=== PATIENT | male | born 1945 | race Caucasian/White ===

== ENCOUNTER → 2020-02-04 | Day surgery (SDC) | payer MEDICARE, OTHER ==
[2020-01-28 14:58] LABS: BASOPHILS % (AUTO) 0.3 % (0-1); EOSINOPHILS # (AUTO) 0.2 X10'3 (0-0.9); EOSINOPHILS % (AUTO) 3.7 % (0-6); LYMPHOCYTES # (AUTO) 0.6 X10'3 (1.1-4.8); MEAN CORPUSCULAR HEMOGLOBIN 30.3 PG (27.0-31.0); MEAN CORPUSCULAR HGB CONC 33.1 g/dL (33.0-36.5); MEAN CORPUSCULAR VOLUME 91.7 FL (78-98); MONOCYTES # (AUTO) 0.2 X10'3 (0-0.9); MONOCYTES % (AUTO) 3.7 % (2-12); NEUTROPHILS % (AUTO) 82.3 % (42-75); PRE OP PLATELET COUNT 183 X10'3 (140-440); RED BLOOD COUNT 3.38 X10'6 (4.70-6.10); RED CELL DISTRIBUTION WIDTH 15.9 % (11.5-14.5)
[2020-01-28 15:04] LABS: ALBUMIN 3.4 G/DL (3.4-5.0); ALBUMIN/GLOBULIN RATIO 0.9 (1.1-1.5); ALKALINE PHOSPHATASE 102 IU/L (46-116); BLOOD UREA NITROGEN 19 MG/DL (7-18); BUN/CREATININE RATIO 15.2 (5.4-32.0); CALCIUM 8.4 MG/DL (8.5-10.1); CHLORIDE 105 MMOL/L (99-107); CREATININE 1.25 MG/DL (0.60-1.10); PRE OP ALT 20 U/L (30-65); PRE OP ANION GAP 6 (8-16); PRE OP AST 14 U/L (10-37); PRE OP BILIRUB, TOTAL 0.3 MG/DL (0.0-1.0); PRE OP POTASSIUM 4.2 MMOL/L (3.4-5.1); PRE OP SODIUM 143 MMOL/L (135-145); TOTAL CARBON DIOXIDE 31.9 MMOL/L (24-32); TOTAL PROTEIN 7.2 G/DL (6.4-8.2); eGFR 56 ML/MIN
[2020-01-28 15:05] LABS: PRE OP GLUCOSE 102 MG/DL (70-104)
[2020-01-28 15:14] LABS: PRE OP HEMOGLOBIN 10.3 g/dL (14.0-17.9)
[2020-02-04] VITALS (7 sets, daily range): BP systolic 122–150; BP diastolic 52–78
[~2020-02-04] VITALS: Ht 188 cm; Wt 99.3 kg
[~2020-02-04] MED LIST: 0.9 % SODIUM CHLORIDE 10 ML VIAL ONE; BUPIVAcaine/PF 2.5 mg/ml (0.25%) 30ml vial ONE; FOLI0.4T2 PO; HYDR-4353 PO; LIDOcaine 1% (10mg/ml) 2ml vial ONE; LIDOcaine 2% (20mg/ml) 5ml vial ONE; MELO-100 PO; METF-900 PO; METH2.5T PO; PANT40TA4 PO; ROPIVAcaine 0.5% (5mg/ml) 30ml vial ONE; SERT50TA PO; acetaminophen 1,000mg/100ml IV 100 ML IV PRN; ceFAZolin 2gm in dextrose, iso 50 ML IV ONE; cloNIDine hcl/PF 100mcg/ml inj ONE; dexamethasone sod phosphate 4mg/ml inj. ONE; ePHEDrine 50MG/ML INJ. ONE; famotidine 20mg tablet PO ONE; fentaNYL/PF 50MCG/1 ML 2ML syringe IV PRN; fentaNYL/PF 50MCG/1 ML 2ML syringe ONE; meperidine/PF 25mg/ml syringe IV PRN; midazolam 2 mg/2 ml injection ONE; morphine 2 MG/ML inj. syringe IV PRN; morphine 4 MG/ML inj SYRINge IV PRN; ondansetron/PF 4mg/2ml inj IV PRN; ondansetron/PF 4mg/2ml inj ONE; proCHLORperazine 10 MG/2 ml inj IV PRN; propofol inj 20 ML IV ONE; ringers solution, lacted 1,000 ML IV SCH; sevoflurane 250ml liquid IH ONE
--- NOTE | 2020-02-04 06:50 | NUR ---
PT HAS OPEN SORE FROM DOG SCRATCH ON RIGHT ARM. ALSO HAS BRUISES SAME RIGHT ARM FROM TRIPPING AND FALLING. DR PRAKASH AWARE.
--- NOTE | 2020-02-04 09:35 | NUR ---
Received from OR via [facility] , accompanied by Anesthesiologist CONNIE and report given by Anesthesiolgist. PATIENT WITH 20G PIV IN RIGHT UE RUNNING LR AT 100. DENIES PAIN AT THIS TIME. LEFT AND RIGHT WRIST DRESSINGS WITH BIAS DRESSING PRESENT - ALL CDI. 10L MASK ON WITH 98% SATURATIONS. Addendum: 02/04/20 at 0961 by Dutch Howard RN, RN Amended: Links added.
--- NOTE | 2020-02-04 10:35 | NUR ---
I HAVE REVIEWED D/C INSTRUCTIONS WITH PATIENT AND FAMILY AND THEY HAVE VERBALIZED UNDERSTANDING. PATIENT D/C HOME WITH ALL BELONGINGS AND FAMILY GAVE TRANSPORT HOME.ICE TO [facility]. IS DEMONSTRATED BY PATIENT AND AGREES TO USE AT HOME. 96% SATS UPON DC. OUT VIA WHEELCHAIR TO PERSONAL; VEHICLE WHERE HE WAS TAKEN HOME. Addendum: 02/04/20 at 1045 by Dutch Howard RN, RN Amended: Links added.
== END | disposition home or self-care (01) ==
LOC: PAS 05:38
PROVIDERS: ATTEND Orthopaedic Surgery Hand Surgery
DX: M19.032 Primary osteoarthritis, left wrist (principal); D21.11 Benign neoplasm of connective and other soft tissue of right upper limb, including shoulder; M05.721 Rheumatoid arthritis with rheumatoid factor of right elbow without organ or systems involvement; M19.031 Primary osteoarthritis, right wrist; I48.91 Unspecified atrial fibrillation; E78.5 Hyperlipidemia, unspecified; F32.9 Major depressive disorder, single episode, unspecified; G47.33 Obstructive sleep apnea (adult) (pediatric); E11.9 Type 2 diabetes mellitus without complications; G89.18 Other acute postprocedural pain; Z87.891 Personal history of nicotine dependence; Z72.89 Other problems related to lifestyle; Z85.47 Personal history of malignant neoplasm of testis; Z79.899 Other long term (current) drug therapy; Z88.5 Allergy status to narcotic agent; Z98.890 Other specified postprocedural states; Z11.59 Encounter for screening for other viral diseases; Z83.6 Family history of other diseases of the respiratory system; Z80.9 Family history of malignant neoplasm, unspecified
CPT/HCPCS: 25800; 26111; 36415; 64417; 71046; 80053; 82948; 85025; 93005; A6402; C1713; C9359; J0735; J1100; J2001; J2250; J2405; J2704; J3010; J3490; J7120; U0003; A4215; A4618; A6449; A7000; J2795

== ENCOUNTER 2024-03-26 08:11 | Day surgery (SDC) | payer OTHER ==
[2024-03-21 15:47] LABS: BASOPHILS % (AUTO) 0.8 % (0-1); EOSINOPHILS # (AUTO) 0.1 X10'3 (0-0.9); EOSINOPHILS % (AUTO) 2.2 % (0-6); LYMPHOCYTES # (AUTO) 0.7 X10'3 (1.1-4.8); LYMPHOCYTES % (AUTO) 13.6 % (21-51); MEAN CORPUSCULAR HEMOGLOBIN 32.5 PG (27.0-31.0); MEAN CORPUSCULAR HGB CONC 33.4 g/dL (33.0-36.5); MEAN CORPUSCULAR VOLUME 97.3 FL (78-98); MEAN PLATELET VOLUME 7.1 FL (7.4-10.4); MONOCYTES # (AUTO) 0.3 X10'3 (0-0.9); MONOCYTES % (AUTO) 6.8 % (2-12); NEUTROPHILS # (AUTO) 3.9 X10'3 (1.8-7.7); NEUTROPHILS % (AUTO) 76.6 % (42-75); PRE OP HEMATOCRIT 33.7 % (42.0-52.0); PRE OP HEMOGLOBIN 11.3 g/dL (14.0-17.9); PRE OP PLATELET COUNT 255 X10'3 (140-440); PRE OP WHITE BLOOD COUNT 5.1 10'3 (4.8-10.8); RED BLOOD COUNT 3.46 X10'6 (4.70-6.10); RED CELL DISTRIBUTION WIDTH 15.7 % (11.5-14.5)
[2024-03-21 16:23] LABS: ALBUMIN 3.5 G/DL (3.4-5.0); ALBUMIN/GLOBULIN RATIO 0.9 (1.1-1.5); ALKALINE PHOSPHATASE 175 IU/L (46-116); BLOOD UREA NITROGEN 24 MG/DL (7-18); BUN/CREATININE RATIO 23.1 (10.0-20.0); CALCIUM 9.1 MG/DL (8.5-10.1); CHLORIDE 100 MMOL/L (99-107); CREATININE 1.04 MG/DL (0.60-1.10); PRE OP ALT 9 U/L (30-65); PRE OP ANION GAP 5 (8-16); PRE OP AST 9 U/L (10-37); PRE OP BILIRUB, TOTAL 0.2 MG/DL (0.0-1.0); PRE OP GLUCOSE 112 MG/DL (70-104); PRE OP POTASSIUM 4.3 MMOL/L (3.4-5.1); PRE OP SODIUM 137 MMOL/L (135-145); TOTAL CARBON DIOXIDE 32.1 MMOL/L (24-32); TOTAL PROTEIN 7.4 G/DL (6.4-8.2); eGFR 69 ML/MIN
[~2024-03-26] VITALS: Ht 188 cm; Wt 69.9 kg
[2024-03-26] VITALS (9 sets, daily range): BP systolic 122–141; BP diastolic 57–90; PULSE 78–84; RESP 13–20; TEMP 98.2; O2SAT 93–98
[2024-03-26] MEDS: famotidine 20mg tablet PO ONE (05:30)
[~2024-03-26 08:11] MED LIST changes: -0.9 % SODIUM CHLORIDE 10 ML VIAL ONE; +ABAL1.56 SQ; +ATOR20TA66 PO; -BUPIVAcaine/PF 2.5 mg/ml (0.25%) 30ml vial ONE; +CARB1TAB45 PO; +CYAN50005 PO; +DILT-36 PO; +DOXE25CA3 PO; +FERR-39 PO; +FLO0.4C PO; -FOLI0.4T2 PO; +FOLI0.4T6 PO; -LIDOcaine 1% (10mg/ml) 2ml vial ONE; -LIDOcaine 2% (20mg/ml) 5ml vial ONE; +MAG OXIDE PO; -MELO-100 PO; -METF-900 PO; -PANT40TA4 PO; +PANT40TA54 PO; -ROPIVAcaine 0.5% (5mg/ml) 30ml vial ONE; -SERT50TA PO; +VENL75TA4 PO; -acetaminophen 1,000mg/100ml IV 100 ML IV PRN; -ceFAZolin 2gm in dextrose, iso 50 ML IV ONE; -cloNIDine hcl/PF 100mcg/ml inj ONE; -dexamethasone sod phosphate 4mg/ml inj. ONE; -ePHEDrine 50MG/ML INJ. ONE; -famotidine 20mg tablet PO ONE; -fentaNYL/PF 50MCG/1 ML 2ML syringe IV PRN; -fentaNYL/PF 50MCG/1 ML 2ML syringe ONE; -meperidine/PF 25mg/ml syringe IV PRN; -midazolam 2 mg/2 ml injection ONE; -morphine 2 MG/ML inj. syringe IV PRN; -morphine 4 MG/ML inj SYRINge IV PRN; -ondansetron/PF 4mg/2ml inj IV PRN; -ondansetron/PF 4mg/2ml inj ONE; -proCHLORperazine 10 MG/2 ml inj IV PRN; -propofol inj 20 ML IV ONE; -sevoflurane 250ml liquid IH ONE
[2024-03-26] MEDS: cefazolin 2gm/D5W 100mL 100 ML IV ONE (09:24)
[2024-03-26] MEDS ORDERED: midazolam 1 mg/ML 2ml injection ONE (10:01)
[2024-03-26] MEDS ORDERED: fentaNYL/PF 50MCG/1 ML 2ML syringe ONE ×2 (10:01→10:43)
[2024-03-26] MEDS ORDERED: ROPIVAcaine 0.5% (5mg/ml) 30ml vial ONE (10:06)
[2024-03-26] MEDS ORDERED: LIDOcaine 2% (20mg/ml) 5ml vial ONE ×2 (10:06→11:20)
[2024-03-26] MEDS ORDERED: propofol inj 20 ML IV ONE (10:27)
[2024-03-26] MEDS ORDERED: ondansetron/PF 4mg/2ml inj IV PRN (10:55)
[2024-03-26] MEDS ORDERED: enalaprilat dihydrate 2.5mg/2ml vial IV PRN (10:55)
[2024-03-26] MEDS ORDERED: ringers solution, lacted 1,000 ML IV SCH (10:55)
[2024-03-26] MEDS ORDERED: morphine 4 MG/ML inj SYRINge IV PRN (10:55)
[2024-03-26] MEDS ORDERED: labetalol 20mg/4ml (5mg/ml) syringe IV PRN (10:55)
[2024-03-26] MEDS ORDERED: proCHLORperazine 10 MG/2 ml inj IV PRN (10:55)
[2024-03-26] MEDS ORDERED: morphine 2 MG/ML inj. syringe IV PRN (10:55)
[2024-03-26] MEDS ORDERED: meperidine/PF 25mg/ml syringe IV PRN ×2 (10:55)
[2024-03-26] MEDS: BUPIVAcaine/PF 2.5mg/ml (0.25%) 10ml vial ONE (10:58)
[2024-03-26] MEDS ORDERED: ketamine 50mg/5ml syringe ONE (10:59)
[2024-03-26] MEDS ORDERED: acetaminophen 1,000mg/100ml IV 100 ML IV ONE (11:23)
[2024-03-26] MEDS: meperidine/PF 25mg/ml syringe IV PRN (12:05)
[2024-03-26] MEDS: HYDROcodone/acetaminophen 10/325mg tab PO ONE (12:50)
== END 2024-03-26 12:59 | disposition home or self-care (01) ==
LOC: PAS 08:11
PROVIDERS: ATTEND Orthopaedic Surgery Hand Surgery
DX: M06.831 Other specified rheumatoid arthritis, right wrist (principal); I49.3 Ventricular premature depolarization; G89.18 Other acute postprocedural pain; E11.9 Type 2 diabetes mellitus without complications; E78.00 Pure hypercholesterolemia, unspecified; J44.9 Chronic obstructive pulmonary disease, unspecified; I48.91 Unspecified atrial fibrillation; M81.0 Age-related osteoporosis without current pathological fracture; G47.30 Sleep apnea, unspecified; Z87.891 Personal history of nicotine dependence; Z79.891 Long term (current) use of opiate analgesic; Z79.899 Other long term (current) drug therapy; Z90.49 Acquired absence of other specified parts of digestive tract; Z98.890 Other specified postprocedural states; Z88.5 Allergy status to narcotic agent; Z80.9 Family history of malignant neoplasm, unspecified; Z82.5 Family history of asthma and other chronic lower respiratory diseases
CPT/HCPCS: 25830; 36415; 64415; 80053; 82948; 85025; 93005; C1713; J0131; J0690; J2175; J2250; J2704; J2795; J3010; J3490; J7030; J7120; Z7506; Z7508; Z7512; A4565; A4618; A6449; A7000

== ENCOUNTER 2024-10-01 07:37 | Day surgery (SDC) | payer OTHER ==
[2024-09-26 13:59] LABS: BASOPHILS % (AUTO) 0.5 % (0-1); EOSINOPHILS # (AUTO) 0.1 X10'3 (0-0.9); EOSINOPHILS % (AUTO) 1.8 % (0-6); LYMPHOCYTES # (AUTO) 0.8 X10'3 (1.1-4.8); LYMPHOCYTES % (AUTO) 11.3 % (21-51); MEAN CORPUSCULAR HEMOGLOBIN 31.9 PG (27.0-31.0); MEAN CORPUSCULAR HGB CONC 33.4 g/dL (33.0-36.5); MEAN CORPUSCULAR VOLUME 95.5 FL (78-98); MEAN PLATELET VOLUME 7.2 FL (7.4-10.4); MONOCYTES # (AUTO) 0.4 X10'3 (0-0.9); MONOCYTES % (AUTO) 5.9 % (2-12); NEUTROPHILS # (AUTO) 5.4 X10'3 (1.8-7.7); NEUTROPHILS % (AUTO) 80.5 % (42-75); PRE OP HEMATOCRIT 34.5 % (42.0-52.0); PRE OP HEMOGLOBIN 11.5 g/dL (14.0-17.9); PRE OP PLATELET COUNT 251 X10'3 (140-440); PRE OP WHITE BLOOD COUNT 6.7 10'3 (4.8-10.8); RED BLOOD COUNT 3.61 X10'6 (4.70-6.10); RED CELL DISTRIBUTION WIDTH 15.5 % (11.5-14.5)
[2024-09-26 14:13] LABS: ALBUMIN 3.5 G/DL (3.4-5.0); ALBUMIN/GLOBULIN RATIO 0.9 (1.1-1.5); ALKALINE PHOSPHATASE 125 IU/L (46-116); BLOOD UREA NITROGEN 20 MG/DL (7-18); BUN/CREATININE RATIO 18.5 (10.0-20.0); CALCIUM 9.2 MG/DL (8.5-10.1); CHLORIDE 101 MMOL/L (99-107); CREATININE 1.08 MG/DL (0.60-1.10); PRE OP ALT 15 U/L (30-65); PRE OP ANION GAP 7 (8-16); PRE OP AST 11 U/L (10-37); PRE OP BILIRUB, TOTAL 0.3 MG/DL (0.0-1.0); PRE OP GLUCOSE 98 MG/DL (70-104); PRE OP POTASSIUM 4.4 MMOL/L (3.4-5.1); PRE OP SODIUM 140 MMOL/L (135-145); TOTAL CARBON DIOXIDE 32.1 MMOL/L (24-32); TOTAL PROTEIN 7.4 G/DL (6.4-8.2); eGFR 66 ML/MIN
[2024-10-01] VITALS (8 sets, daily range): BP systolic 106–130; BP diastolic 57–69; PULSE 80–92; RESP 12–20; TEMP 99.1; O2SAT 91–99
[~2024-10-01] VITALS: Ht 182.9 cm; Wt 75.4 kg
[2024-10-01] MEDS: ceFAZolin 2gm in dextrose, iso 50 ML IV ONE (05:30)
[~2024-10-01 07:37] MED LIST changes: +CARB1TAB36 PO; -CARB1TAB45 PO; -DILT-36 PO; +DILT120T4 PO; -DOXE25CA3 PO; -FOLI0.4T6 PO; +FOLI1TAB27 PO; -MAG OXIDE PO; +MAGN400C PO; +VENL150C5 PO; -VENL75TA4 PO; -ringers solution, lacted 1,000 ML IV SCH
[2024-10-01] MEDS: ringers solution, lacted 1,000 ML IV SCH (08:55)
[2024-10-01] MEDS: famotidine 20mg tablet PO ONE (08:55)
[2024-10-01] MEDS ORDERED: hydrALAZINE 20mg/ml inj. IV PRN (09:10)
[2024-10-01] MEDS ORDERED: ringers solution, lacted 1,000 ML IV SCH (09:10)
[2024-10-01] MEDS ORDERED: fentaNYL/PF 50MCG/1 ML 2ML syringe IV PRN ×2 (09:10)
[2024-10-01] MEDS ORDERED: labetalol 20mg/4ml (5mg/ml) syringe IV PRN (09:10)
[2024-10-01] MEDS ORDERED: ondansetron/PF 4mg/2ml inj IV PRN (09:10)
[2024-10-01] MEDS ORDERED: morphine 2 MG/ML inj. syringe IV PRN (09:10)
[2024-10-01] MEDS ORDERED: morphine 4 MG/ML inj SYRINge IV PRN (09:10)
[2024-10-01] MEDS ORDERED: BUPIVAcaine/PF 2.5mg/ml (0.25%) 10ml vial ONE (10:25)
[2024-10-01] MEDS ORDERED: LIDOcaine 2% (20mg/ml) 5ml vial ONE ×2 (10:25→10:47)
[2024-10-01] MEDS ORDERED: MIDAZolam 1 MG/ML 5ML VIAL ONE (10:47)
[2024-10-01] MEDS ORDERED: fentaNYL/PF 50MCG/1 ML 2ML syringe ONE (10:47)
[2024-10-01] MEDS ORDERED: LIDOcaine 0.5% (5mg/ml) 50ml vial ONE ×2 (10:47)
[2024-10-01] MEDS ORDERED: ketorolac trometh 30MG/ML vial 30 MG/ML VIAL ONE (10:47)
[2024-10-01] MEDS ORDERED: BUPIVAcaine 2.5mg/ml inj 50ml vial (contains preservative) ONE (10:50)
[2024-10-01] MEDS: BUPIVAcaine/PF 2.5 mg/ml (0.25%) 30ml vial IJ ONE (11:14)
== END 2024-10-01 12:50 | disposition home or self-care (01) ==
LOC: PAS 07:37
PROVIDERS: ATTEND Orthopaedic Surgery Hand Surgery
DX: M19.041 Primary osteoarthritis, right hand (principal); M06.9 Rheumatoid arthritis, unspecified; G47.30 Sleep apnea, unspecified; G20.A1 Parkinson's disease without dyskinesia, without mention of fluctuations; K21.9 Gastro-esophageal reflux disease without esophagitis; M81.0 Age-related osteoporosis without current pathological fracture; Z96.691 Finger-joint replacement of right hand; Z79.899 Other long term (current) drug therapy; Z88.6 Allergy status to analgesic agent; Z98.890 Other specified postprocedural states
CPT/HCPCS: 26531; 36415; 80053; 82948; 85025; 93005; J0690; J1885; J2003; J2250; J3010; J3490; J7030; J7120; L8630; Z7506; Z7512; A4215; A4618; A6449; A7000

== ENCOUNTER 2025-06-03 05:45 | Day surgery (SDC) | payer OTHER ==
--- NOTE | 2025-05-31 13:31 | ELECTROCARDIOGRAPH REPORT ---
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 JOSH Whittington Measurements Intervals [place] Rate: 98 P: 76 KS: 162 QRS: 54 QRSD: 92 T: 56 QT: 335 QTc: 428 Interpretive Statements Sinus rhythm Electronically Signed On 05-31-2025 16:02:[address] JOSH Whittington Please click the below link to view image of tracing.
[2025-05-31 13:58] LABS: MEAN PLATELET VOLUME 7.0 FL (7.4-10.4); PRE OP HEMATOCRIT 33.0 % (42.0-52.0); PRE OP PLATELET COUNT 263 X10'3 (140-440); PRE OP WHITE BLOOD COUNT 6.6 10'3 (4.8-10.8); RED CELL DISTRIBUTION WIDTH 16.3 % (11.5-14.5)
[2025-05-31 13:59] LABS: PRE OP HEMOGLOBIN 10.8 g/dL (14.0-17.9)
[2025-05-31 14:11] LABS: CREATININE 1.22 MG/DL (0.60-1.10); PRE OP ALT 13 U/L (30-65); PRE OP ANION GAP 1 (8-16); PRE OP AST 10 U/L (10-37); PRE OP BILIRUB, TOTAL 0.2 MG/DL (0.0-1.0); PRE OP GLUCOSE 130 MG/DL (70-104); PRE OP POTASSIUM 4.2 MMOL/L (3.4-5.1); PRE OP SODIUM 137 MMOL/L (135-145); TOTAL CARBON DIOXIDE 36.0 MMOL/L (24-32); eGFR 57 ML/MIN
[~2025-06-03] VITALS: Ht 188 cm; Wt 75.6 kg
[2025-06-03] MEDS: ceFAZolin 2gm/dext,iso 50mL 50 ML IV ONE (05:30)
[~2025-06-03 05:45] MED LIST changes: -ATOR20TA66 PO; -CARB1TAB36 PO
[2025-06-03 05:55] VITALS: BP 117/60; PULSE 79; RESP 16; TEMP 97.9; O2SAT 79; O2SAT 97
[2025-06-03] MEDS: ringers solution, lacted 1,000 ML IV SCH (07:28)
[2025-06-03] MEDS ORDERED: fentaNYL/PF 50MCG/1 ML 2ML syringe ONE (07:58)
[2025-06-03] MEDS ORDERED: propofol inj 20 ML IV ONE (08:00)
[2025-06-03 08:21] VITALS: BP 105/53; RESP 79; O2SAT 100
[2025-06-03 08:30] VITALS: BP 125/61; PULSE 85; RESP 15; O2SAT 96
[2025-06-03 08:40] VITALS: BP 117/61; PULSE 82; RESP 17; O2SAT 93
[2025-06-03 08:50] VITALS: BP 122/57; PULSE 80; O2SAT 97
--- NOTE | 2025-06-03 13:09 | OPERATIVE REPORT ---
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 He has had surgery in attempt to improve function his hand. His main issue is contracture of the right index finger with overlapping to the middle finger impairing function. Surgery is indicated to improve function. We had discussed prior with the patient the options which include an amputation but also reconstructive attempts at salvaging the finger. He refused and had chose amputation to try and improve function. Risks of the type of procedure include mostly wound healing issues and neuroma formation. He agreed to proceed. In the operating room the arm was then prepped and draped in usual manner time- out procedure was identified. Local anesthetic was given at the base of the digit. A tourniquet was elevated on the forearm. A fishmouth incision was made distal to the PIP joint and flexor and extensor tendons were transected as were the neurovascular bundles. The joint was disarticulated at the proximal interphalangeal joint and the cartilage on the head of the proximal phalanx was removed and rounded create a more cosmetic effect. Digital nerves were pulled distally and cut and allowed to retract back into the soft tissues. Skin edges were trimmed up and the the fishmouth incision was then sutured closed with Prolene suture. Sterile dressing was then applied and the tourniquet was released. The patient was taken to the recovery room in stable condition and tolerated the procedure well COLTEN LUJAN Jr., MD Jun 03, 2025 13:09
== END 2025-06-03 08:51 | disposition home or self-care (01) ==
LOC: PAS 05:45
PROVIDERS: ATTEND Orthopaedic Surgery Hand Surgery
DX: M24.541 Contracture, right hand (principal); M06.9 Rheumatoid arthritis, unspecified; E11.9 Type 2 diabetes mellitus without complications; E78.00 Pure hypercholesterolemia, unspecified; I48.91 Unspecified atrial fibrillation; G47.33 Obstructive sleep apnea (adult) (pediatric); K21.9 Gastro-esophageal reflux disease without esophagitis; I25.2 Old myocardial infarction; F32.A Depression, unspecified; M81.0 Age-related osteoporosis without current pathological fracture; Z87.891 Personal history of nicotine dependence; Z79.891 Long term (current) use of opiate analgesic; Z79.899 Other long term (current) drug therapy; Z90.49 Acquired absence of other specified parts of digestive tract; Z98.890 Other specified postprocedural states; Z88.5 Allergy status to narcotic agent; Z82.5 Family history of asthma and other chronic lower respiratory diseases
CPT/HCPCS: 26951; 36415; 80053; 82948; 85025; 93005; J2704; J3010; J7030; J7120; Z7506; Z7512; A4615; A4618; A6449; A7000